=== PATIENT | male | born 1960 | race African-American/Black ===

== ENCOUNTER 2017-11-10 20:54 | Emergency (ER) | payer OTHER ==
[~2017-11-10] VITALS: Ht 175.3 cm; Wt 65.8 kg
[~2017-11-10 20:54] MED LIST: PERCOCET 325 MG1 TA2 PO
[2017-11-10 21:02] VITALS: BP 136/80
[2017-11-10] MEDS ORDERED: PREDNISONE10 M2 PO (23:06)
--- NOTE | 2017-11-10 23:06 | ED ANIMAL BITE/WOUND CHECK ---
History of Present Illness General Chief Complaint: Animal/Insect Bite Stated Complaint: "I STUNG ON MY ARM" Source: patient, family, old records Exam Limitations: no limitations Vital Signs & Intake/Output Vital Signs & Intake/Output Vital Signs Date Time Temp Pulse Resp B/P B/P Pulse O2 O2 Flow FiO2 Mean Ox Delivery Rate 11/10 2101 97.7 85 18 136/80 97 ED Intake and Output 11/11 0000 11/10 1200 Intake Total Output Total Balance Patient 145 lb Weight Weight Reported by Patient Measurement Method Allergies Coded Allergies: MDX - No Known Allergies - Nka (NO KNOWN ALLERGIES - NKA) (03/12/12) Reconcile Medications OXYCODONE HCL/ACETAMINOPHEN (Percocet 5-325 MG Tablet) 325 MG/5 MG TAB 1-2 TAB PO Q4-6 PRN PRN PAIN Prednisone 10 MG TABLET 1 TAB PO DAILY ALLERGIC REACTION TAKE 3 TABS FOR 3 DAYS THEN TAKE 2 TABS FOR 3 DAYS THEN TAKE 1 TAB FOR 3 DAYS Triage Note: PT TO TRIAGE S/P BEE STING TO R FOREARM YESTERDAY. C/O SWELLING TO AREA. DENIES THROAT IRRITATION. Triage Nurses Notes Reviewed? yes HPI: Patient was stung by a bee on the inside portion of her right elbow yesterday. This evening the inner aspect of her right arm is swollen and erythematous. Positive chills but no fever. Throbbing pain to the area. There is no pain outside of the erythematous area. The pain increases with palpation. The pain is 6 out of 10. Past History Travel History Traveled to [place] past 21 day No Medical History Any Pertinent Medical History? see below for history Neurological: NONE EENT: NONE Cardiovascular: NONE Respiratory: THORACOTOMY FOR UNKNOWN REASON Gastrointestinal: NONE Hepatic: NONE Renal: NONE Musculoskeletal: NONE Psychiatric: NONE Endocrine: NONE Blood Disorders: NONE Cancer(s): NONE TRANSCRIBER/Reproductive: NONE Surgical History Surgical History: THORACOTOMY RIGHT SHOULDER Psychosocial History What is your primary language Lao Tobacco Use: Never used ETOH Use: occasional use Illicit Drug Use: denies illicit drug use Family History Hx Contributory? No Review of Systems Review of Systems Constitutional: Reports: see HPI, chills. EENTM: Reports: no symptoms. Respiratory: Reports: no symptoms. Cardiovascular: Reports: no symptoms. GI: Reports: no symptoms. Musculoskeletal: Reports: see HPI. Skin: Reports: see HPI. Neurological/Psychological: Reports: no symptoms. Immunologic/Allergic: Reports: no symptoms. Physical Exam Physical Exam General Appearance: well developed/nourished, alert, awake Head: atraumatic, normal appearance Eyes: Bilateral: PERRL, EOMI. Ears, Nose, Throat: normal pharynx, normal ENT inspection, hearing grossly normal Neck: normal inspection, supple, full range of motion Respiratory: normal breath sounds, chest non-tender, no respiratory distress, lungs clear Cardiovascular: regular rate/rhythm, normal peripheral pulses Gastrointestinal: normal bowel sounds, soft, non-tender, no organomegaly Extremities: normal range of motion, erythema from the elbow down to the wrist Neurologic/Psych: no motor/sensory deficits, awake, alert, oriented x 3, normal gait, normal mood/affect Skin: erythema Lymphatic: no axillary adenopathy Progress Differential Diagnosis: cellulitis Plan of Care: Current Medications Sig/Keon Start time Last Medication Dose Stop Time Status Admin Diphenhydramine HCl 25 MG ONCE ONE 11/10 2314 UNVr (Benadryl) 11/11 2315 Prednisone 60 MG ONCE ONE 11/10 2314 UNVr 11/11 2315 Departure Departure Disposition: HOME OR SELF CARE Condition: Stable Clinical Impression Primary Impression: Bee sting allergy Referrals: Aline SEAMAN,Micha Loving (PCP/Family) Additional Instructions: TAKE PREDNISONE PRESCRIBED RETURN IF SYMPTOMS WORSEN OR FOR ANY CONCERS APPLY ICE Departure Forms: Customer Survey General Discharge Information Prescriptions: Current Visit Scripts Prednisone 1 TAB PO DAILY #18 TAB TAKE 3 TABS FOR 3 DAYS THEN TAKE 2 TABS FOR 3 DAYS THEN TAKE 1 TAB FOR 3 DAYS
== END 2017-11-10 23:10 ==
LOC: ERH 20:54
DX: S50.361A Insect bite (nonvenomous) of right elbow, initial encounter (principal); W57.XXXA Bitten or stung by nonvenomous insect and other nonvenomous arthropods, initial encounter